=== PATIENT | female | born 1975 | race Hispanic/Latino ===

== ENCOUNTER 2023-08-20 15:38 | Emergency (ER) | payer BC, OTHER, SELFPAY | END 2023-08-20 17:55 | disposition home or self-care (01) | LOC: CSHERS 15:38 | DX: T81.31XA Disruption of external operation (surgical) wound, not elsewhere classified, initial encounter (principal); E66.9 Obesity, unspecified | CPT/HCPCS: 99283 ==

== ENCOUNTER 2025-08-28 12:15 | Emergency (ER) | payer BC | END 2025-08-28 13:13 | disposition home or self-care (01) | LOC: CSHERS 12:15 | DX: T81.31XA Disruption of external operation (surgical) wound, not elsewhere classified, initial encounter (principal) | CPT/HCPCS: 99283 ==